=== PATIENT | male | born 1990 | race Caucasian/White ===

== ENCOUNTER 2020-03-10 11:25 | Day surgery (SDC) | payer OTHER ==
[2020-03-09 10:21] VITALS: BMI 26.4
[2020-03-10] MEDS ORDERED: ACETAMINOPHEN 325 MG TABLET (FP) PO PRN (12:27)
[2020-03-10] MEDS ORDERED: ONDANSETRON 4 MG/2 ML VIAL IVPUSH PRN (12:27)
[2020-03-10] MEDS ORDERED: oxyCODONE HCL 5 MG TABLET PO PRN (12:27)
[2020-03-10] MEDS ORDERED: LACTATED RINGERS SOLUTION 1,000 ML IV SCH (12:30)
[2020-03-10] MEDS ORDERED: GUM MASTIC/STORAX/MSAL/ALCOHOL 1 DRP DROPSBTL MC ONE (13:51)
[2020-03-10] MEDS ORDERED: PROPOFOL 20 ML ONE (14:07)
[2020-03-10] MEDS ORDERED: MIDAZOLAM HCL 2 MG/2 ML SINGLE DOSE VIAL ONE (14:07)
[2020-03-10] MEDS ORDERED: ceFAZolin SODIUM 1 GM VIAL ONE (14:15)
[2020-03-10] MEDS ORDERED: BUPIVACAINE HCL/PF 0.25% (2.5MG/ML) 10 ML VIAL IJ ONE ×2 (14:24→14:52)
[2020-03-10] MEDS ORDERED: KETOROLAC TROMETHAMINE 30 MG/1 ML VIAL ONE (14:47)
[2020-03-10 16:30] VITALS: BP 124/80; PULSE 71; TEMP 97.9
== END 2020-03-10 16:20 | disposition home or self-care (01) ==
LOC: FASU 11:25
PROVIDERS: ATTEND Orthopaedic Surgery Hand Surgery
PROC: 01N40ZZ Release Ulnar Nerve, Open Approach (ICD-10-PCS; 2020-03-10)
PROC: 01N54ZZ Release Median Nerve, Percutaneous Endoscopic Approach (ICD-10-PCS; principal; 2020-03-10 14:22)
DX: G56.02 Carpal tunnel syndrome, left upper limb (principal); G56.22 Lesion of ulnar nerve, left upper limb
CPT/HCPCS: 94760